=== PATIENT | male | born 1955 | race Caucasian/White ===

== ENCOUNTER → 2018-03-24 | Outpatient (CLI) | payer OTHER, MEDICARE | LOC: FIMAGING 14:54 | PROVIDERS: ATTEND Family Medicine | DX: M25.562 Pain in left knee (principal) ==

== ENCOUNTER → 2018-03-26 | Outpatient (CLI) | payer OTHER, MEDICARE | LOC: BHLMT 11:30 | PROVIDERS: ATTEND Internal Medicine Cardiovascular Disease | DX: I48.91 Unspecified atrial fibrillation (principal); I71.9 Aortic aneurysm of unspecified site, without rupture | CPT/HCPCS: 93306-PO ==

== ENCOUNTER → 2018-09-26 | Outpatient (CLI) | payer OTHER | LOC: BHLMT 11:15 | PROVIDERS: ATTEND Internal Medicine Interventional Cardiology | DX: Z01.810 Encounter for preprocedural cardiovascular examination (principal); I48.91 Unspecified atrial fibrillation | CPT/HCPCS: 93005-PO ==

== ENCOUNTER 2018-10-15 08:02 | Inpatient (IN) | payer OTHER, MEDICARE ==
--- NOTE | 2018-10-15 06:16 | PDHPUP ---
History & Physical Update H&P update statement: This history and physical update is based on an assessment of the patient which was completed after admission or registration (within 24 hours), but prior to the surgery/procedure. H&P update: H&P reviewed & patient examined, no change in patient's condition since H&P completed
--- NOTE | 2018-10-15 07:24 | PDANEPAE ---
ANE Past Medical History - Cardiovascular History Hx Hypertension: No Hx Arrhythmias: Yes Hx Coronary Artery / Peripheral Vascular Disease: No Hx CHF / Valvular Disease: No Cardiovascular History Comment: A FIB- TAKES BYSTOLIC - Pulmonary History Hx COPD: No Hx Asthma/Reactive Airway Disease: No Hx Recent Upper Respiratory Infection: No Hx Oxygen in Use at Home: No Hx Sleep Apnea: Yes Sleep Apnea Screening Result - Last Documented: Positive Pulmonary History Comment: DISHA USE CPAP - Neurologic History Hx Cerebrovascular Accident: No Hx Seizures: No Hx Dementia: No Neurologic History Comment: DDD. scoliosis - Endocrine History Hx Diabetes: No - Renal History Hx Renal Disorders: No - Liver History Hx Hepatic Disorders: No - Neurological & Psychiatric Hx Hx Neurological and Psychiatric Disorders: No - Cancer History Hx Cancer: Yes Cancer History Comment: BASAL CELL NOSE X1 - Congenital Disorder History Hx Congenital Disorders: No - GI History Hx Gastrointestinal Disorders: Yes Gastrointestinal History Comment: POLYPS. OCC INDIGESTIION - Other Health History Other Health History: OA. DDD - Chronic Pain History Chronic Pain: Yes (L HIP, JANICE KNEES, LOW BACK) - Surgical History Prior Surgeries: CARDIOVERSION. FX L HIP 31 Y AGO. HARDWARE REM SURG ANE Review of Systems Review of Systems: - Exercise capacity METS (RN): 4 METS ANE Patient History - Allergies Allergies/Adverse Reactions: No Known Allergies Allergy (Verified 10/08/18 11:31) - Home Medications Home Medications: Nebivolol HCl [Bystolic 5 mg (*)] 5 mg PO HS 09/07/14 [Last Taken 10/14/18] Meloxicam 15 mg PO DAILY 10/01/18 [Last Taken 10/08/18] - Smoking Hx Smoking Status: Never smoked - Family Anes Hx Family Hx Anesthesia Complications: NONE ANE Labs/Vital Signs - Labs - CBC Platelet Count: 268 - Vital Signs Height: 180.3 cm Weight: 93.4 kg ANE Physical Exam - Airway Neck exam: FROM Mallampati Score: Class 2 Mouth exam: normal dental/mouth exam - Pulmonary Pulmonary: clear to auscultation - Cardiovascular Cardiovascular: regular rate and rhythym - ASA Status ASA Status: II ANE Anesthesia Plan Anesthesia Plan: spinal
[~2018-10-15 08:02] MED LIST: TRANEXAMIC ACID 3,000 MG/50 ML BAG IRR ONE
[2018-10-15] MEDS ORDERED: DEXAMETHASONE 4 MG/ML VIAL IVP ONE (08:16)
[2018-10-15] MEDS ORDERED: ceFAZolin 2 GM/DEXTROSE 100 ML IV ONE (08:16)
[2018-10-15] MEDS ORDERED: FAMOTIDINE 20 MG TAB PO ONE (08:16)
[2018-10-15] MEDS ORDERED: ACETAMINOPHEN 325 MG TAB PO ONE (08:16)
[2018-10-15] MEDS ORDERED: LR 1,000 ML IV ONE (08:17)
[2018-10-15] MEDS ORDERED: PROPOFOL/EMULSION 500 MG/50 ML BOTTLE IV ONE (08:57)
[2018-10-15] MEDS ORDERED: BUPIVACAINE/DEXTROSE 7.5MG/ML 2 ML SPINAL AMP SP ONE (08:58)
[2018-10-15] MEDS ORDERED: MIDAZOLAM 2 MG/2 ML VIAL IVP ONE (09:10)
[2018-10-15] MEDS ORDERED: ONDANSETRON 4 MG/2 ML VIAL ONE (09:20)
[2018-10-15] MEDS ORDERED: PHENYLEPHRINE HCL 100 MCG/ML SYR ONE ×2 (09:27)
[2018-10-15] MEDS ORDERED: fentaNYL 100 MCG/2 ML INJ ONE (09:31)
[2018-10-15] MEDS ORDERED: TRANEXAMIC ACID 3,000 MG in NS (SYRINGE) 50 ML IRR ONE (10:00)
[2018-10-15] MEDS ORDERED: ROPIVACAINE 0.2% 80 MG, EPINEPHrine 0.2 MG, KETOROLAC TROMETHAMINE 30 MG in SYRINGE 0 ML IU ONE (10:00)
[2018-10-15] MEDS ORDERED: ALBUTEROL 3 ML DEYVIAL IH PRN (11:11)
[2018-10-15] MEDS ORDERED: MEPERIDINE 25 MG/0.5 ML AMP IVP PRN (11:11)
[2018-10-15] MEDS ORDERED: METOCLOPRAMIDE 10 MG/2 ML VIAL IVP PRN ×2 (11:11→11:30)
[2018-10-15] MEDS ORDERED: fentaNYL 100 MCG/2 ML INJ IVP PRN (11:11)
[2018-10-15] MEDS ORDERED: HYDROmorphONE/DILAUDID 2 MG/ML INJ IVP PRN (11:11)
[2018-10-15] MEDS ORDERED: LR 500 ML IV PRN (11:11)
[2018-10-15] MEDS ORDERED: PROMETHAZINE HCL 25 MG/ML INJ IVP PRN ×2 (11:11→11:30)
[2018-10-15] MEDS ORDERED: ONDANSETRON 4 MG/2 ML VIAL IVP PRN ×2 (11:11→11:30)
[2018-10-15] MEDS ORDERED: DIAZEPAM 5 MG/ML 1 ML SYR IVP PRN (11:11)
[2018-10-15] MEDS ORDERED: DEXAMETHASONE 4 MG/ML VIAL IVP PRN (11:11)
[2018-10-15] MEDS ORDERED: NALOXONE HCL 0.4 MG/ML INJ IVP PRN (11:11)
[2018-10-15] MEDS ORDERED: TEMAZEPAM 15 MG CAP PO PRN (11:30)
[2018-10-15] MEDS ORDERED: ONDANSETRON DISINTEGRATING 4 MG TAB PO PRN (11:30)
[2018-10-15] MEDS ORDERED: BISACODYL 10 MG SUPP PR PRN (11:30)
[2018-10-15] MEDS ORDERED: LACTULOSE 20 GM/30 ML UDCUP PO PRN (11:30)
[2018-10-15] MEDS ORDERED: PROMETHAZINE HCL 25 MG SUPPR PR PRN (11:30)
[2018-10-15] MEDS ORDERED: MAGNESIUM HYDROXIDE 30 ML UDCUP PO PRN (11:30)
[2018-10-15] MEDS ORDERED: CYCLOBENZAPRINE 10 MG TAB PO PRN (11:30)
[2018-10-15] MEDS ORDERED: POLYETHYLENE GLYCOL 3350 17 GM PKT PO PRN (11:30)
[2018-10-15] MEDS ORDERED: DIPHENOXYLATE/ATROPINE LOMOTIL 1 TAB PO PRN (11:30)
[2018-10-15] MEDS ORDERED: diphenhydrAMINE 25 MG CAP PO PRN (11:30)
[2018-10-15] MEDS ORDERED: LR 1,000 ML IV SCH (11:30)
--- NOTE | 2018-10-15 11:30 | POSTOPPROG ---
Post Op Note Date of Operation: 10/15/18 Surgeon: Atiya Dubois Mult Au Matic Operator: omayra dubois PA-C and Demetria Marte PA-C Anesthesiologist: dr. arciniega Anesthesia: Spinal Pre-op Diagnosis: right hip OA Post-op Diagnosis: same Indication: right hip pain Procedure: R SARAH ant approach Findings: severe hip OA Inf/Abcess present in the surg proc area at time of surgery?: No EBL: 100-500
--- NOTE | 2018-10-15 11:39 | PDMN ---
Medical Necessity Medical necessity: Pt meets IP criteria as of 10/15/2018 per and [facility] S-560 ( SARAH); Medicare IP only procedure
--- NOTE | 2018-10-15 12:34 | POSTANESTH ---
Post Anesthetic Evaluation Cardiovascular Status: Normal, Stable Respiratory Status: Normal, Stable Level of Consciousness/Mental Status: Can Participate in Eval Pain Control: Adequate, Prn Tx Ordered Nausea/Vomiting Control: Adequate, Prn Tx Ordered Complications Possibly Related to Anesthesia: None Noted
[2018-10-15] MEDS ORDERED: ceFAZolin 2 GM/DEXTROSE 100 ML IV SCH (14:00)
[2018-10-15] MEDS: ACETAMINOPHEN 325 MG TAB PO SCH ×2 (15:09→18:15)
[2018-10-15] MEDS: oxyCODONE IR 5 MG TAB PO PRN (15:50)
[2018-10-15] MEDS: ceFAZolin 2 GM/DEXTROSE 100 ML IV SCH (18:15)
[2018-10-15] MEDS ORDERED: NEBIVOLOL HCL 5 MG TAB PO SCH (21:00)
[2018-10-15] MEDS: SENNOSIDES/DOCUSATE SODIUM TAB PO SCH (21:02)
[2018-10-15] MEDS: ASPIRIN 81 MG CHEWABLE TAB PO SCH (21:02)
[2018-10-15] MEDS: FAMOTIDINE 20 MG TAB PO SCH (21:02)
[2018-10-16] MEDS: ACETAMINOPHEN 325 MG TAB PO SCH ×3 (00:14→11:41)
[2018-10-16] MEDS: oxyCODONE IR 5 MG TAB PO PRN ×2 (00:15→10:38)
[2018-10-16] MEDS: ceFAZolin 2 GM/DEXTROSE 100 ML IV SCH (02:28)
[2018-10-16 08:36] VITALS: BP 113/78
[2018-10-16] MEDS: ASPIRIN 81 MG CHEWABLE TAB PO SCH (08:37)
[2018-10-16] MEDS: FAMOTIDINE 20 MG TAB PO SCH (08:37)
[2018-10-16] MEDS: SENNOSIDES/DOCUSATE SODIUM TAB PO SCH (08:37)
--- NOTE | 2018-10-16 09:48 | ASMTLACE ---
LACE Length of stay for Answers: 2 days current admission Acuity / Level of Answers: Yes Care: Did the patient have an inpatient admission? Comorbidities - select Answers: Opioid dependence all that apply / Chronic pain Other Notes: AFib # of Emergency department Answers: 0 visits in the last 6 months Score: 10 Date Signed: 10/16/2018 09:48 AM Electronically Signed By:OMERO Muhammad
--- NOTE | 2018-10-16 13:31 | SOAPPROG ---
SOAP Progress Note Assessment/Plan: Assessment: Patient is doing well POD 1 s/p RTHA Pain management: pain is well controlled on oral pain meds. VTE ppx: recommend 81 mg aspirin morning and evening for 4 weeks, cont KETAN and SCDs Anemia: level is expected initially postop. Asymptomatic. Continue to monitor D/c planning:patient has done much better than anticipated. Patient is stable, BP stable, pain well controlled and patient is eager for discharge to home. May d/c to home today pending release from PT Pt. initially required catheterization but was able to void before discharge Plan: 10/16/18 13:29 10/16/18 13:30 Subjective: No nausea, vomiting, shortness of breath or chest pain. Pain well-controlled. Objective: Vital Signs Temp Pulse Resp BP Pulse Ox 36.3 C 61 16 113/78 95 10/16/18 08:00 10/16/18 08:00 10/16/18 08:00 10/16/18 08:00 10/16/18 08:00 Laboratory Results 10/16/18 04:15 10/15/18 10/16/18 10/17/18 05:59 05:59 05:59 Intake Total 1690 Output Total 3200 Balance -1510 RLE: incision dressing clean and dry, NVI, positive DF/PF ICD10 Worksheet Patient Problems: Problems Problem Status Onset Osteoarthritis of hip Acute
--- NOTE | 2018-10-16 18:22 | GOP ---
[f rep st] OPERATIVE REPORT DATE OF OPERATION: 10/15/2018 SURGEON: Cody Zuniga MD SLIDE FASTENER REPAIRER: Beata Zuniga, KELLY. ANESTHESIA: Spinal. PREOPERATIVE DIAGNOSIS: Right hip osteoarthritis. POSTOPERATIVE DIAGNOSIS: Right hip osteoarthritis. PROCEDURE PERFORMED: Total hip arthroplasty with x-ray. FINDINGS: ESTIMATED BLOOD LOSS: 200 cc. INDICATIONS: The patient has progressively worsening arthritis of the hip which has failed medical m anagement. The patient understands the treatment options including continued non-operative care and has selected surgical intervention. The patient has decided to undergo total hip arthroplasty via th e direct anterior approach, understanding the risks of the procedure including, but not limited to, n eurovascular injury, infection, persistent pain, component wear and loosening, deep venous thrombosis , pulmonary embolism, limb length inequality, hip instability (including dislocation), and intra-oper ative fractures. DESCRIPTION OF PROCEDURE: After proper identification of the patient including verification and sarah ing the surgical site, the patient was brought to the operating room and placed in the supine positio n. All bony prominences were well padded. Anesthesia was induced without complication and intraveno us prophylactic antibiotics were administered prior to skin incision. The operative leg was placed in the Trumpf Arch table extension and the well leg in a Yellofin leg ho lder. The patient was prepped and draped in the usual sterile fashion. The C-arm was draped for int ra-operative fluoroscopy to check acetabular position, femoral component position including leg lengt h and femoral offset. Attention was then drawn to surgical exposure of the hip. An incision was made with a #10 Bard Rankin r blade starting 3 cm lateral and 3 cm distal to the anterior superior iliac spine measuring 8-10 cm and coursing distally toward the greater trochanter. The skin and subcutaneous tissues were divided sharply down to the fascia fernando. The fascia fernando was incised in line with the skin incision exposing the underlying tensor fascia fernando muscle. The muscle was bluntly elevated from the fascia and the f irst extracapsular Cobra retractor was placed laterally at the junction of the superior femoral neck and greater trochanter. The lateral femoral circumflex vessels were identified, cauterized, and divi ded with the Aquamantys bipolar cautery. The deep investing fascia of the TFL was divided to allow p daniel mobilization of the muscle preventing damage during the retraction. The reflected head of the rectus femoris muscle was elevated off the anterior hip capsule and a medial Cobra retractor was plac ed just proximal to the lesser trochanter. The anterior capsulotomy was made sharply from the superolateral acetabulum to the saddle junction of the superior femoral neck and greater trochanter, then coursing inferomedial towards the lesser troc hanter. The retractors were then placed in the intracapsular position for femoral neck osteotomy. C orresponding to pre-operative templating, the osteotomy was made with the oscillating saw carefully p rotecting the greater trochanter and soft tissues. The femoral head was removed from the acetabulum with a corkscrew and confirmed to be severely arthritic with exposed bone, deformity and osteophytes. Similar findings were confirmed in the acetabulum. The Arch table extension was then placed in 40 degrees external rotation. Attention was then drawn to the acetabular preparation. After placement of the anterior and posterio r Cobra retractors outside the labrum and intracapsular, the circumferential labrum was removed sharp ly. The foveal contents were then removed and hemostasis obtained with cautery. The first reamer selected was sized using the removed femoral head. Reaming began with medialization and then commenced in 2 mm increments at 45 degrees of abduction and 15 degrees of anteversion using fluoroscopic navigation. Reaming ceased 1 mm less than the definitive acetabular component and kanchan esponded to the pre-operative templating. The final acetabular component was inserted using fluorosc opy to achieve proper orientation yielding excellent purchase and stability in the acetabulum. The f inal acetabular liner was then placed and its seating confirmed. Attention was then turned to the femur. The Arch table extension was placed in extension and adducti on, delivering the osteotomized femoral neck into the wound. A 2-pronged femoral elevator was placed at the calcar and another at the tip of the greater trochanter. The posterolateral capsule was rele ased with cautery allowing mobilization of the femur lateral and anterior for preparation. The exter nal rotators were visualized and preserved. A curette and rongeur were used to open the starting poi nt for broaching. Serial broaching started with the #0 broach and ended with the broach that exhibit ed excellent fit in the proximal femur. A change in pitch during mallet strikes was accompanied by t he inability to advance the broach any further. The trial reduction was performed and fluoroscopic n avigation was utilized to check limb length. Adjustments were made to equalize limb length according ly. After the final trials were accepted they were removed and the wound was copiously lavaged. The femo ral component was seated to the same depth as the final broach and the femoral head was impacted onto the clean trunnion. The hip was then reduced for the final time and once more fluoroscopy was used to check that limb length equality was achieved. The wound was irrigated and closed in layers, the fascia fernando with 2-0 Quill, the subcutaneous tissue with 2-0 Quill, and the skin with Dermabond. Sterile dressings were applied. Final sharps and spon ge counts were accurate. The patient was then transferred to a hospital bed and brought to the [facility] room in stable condition. IMPLANT: Accolade II, size 5 at 127. Acetabular component is a Trident II, 58 mm. Liner is a Tride nt X3, 36 mm. Head is a Biolox delta 36 mm, +2.5. /[id number]/MODL
== END 2018-10-16 12:13 | disposition home or self-care (01) | DRG 470 ==
LOC: F3N 08:02
PROVIDERS: ADMIT Orthopaedic Surgery; ATTEND Orthopaedic Surgery
PROC: 0SR904A Replacement of Right Hip Joint with Ceramic on Polyethylene Synthetic Substitute, Uncemented, Open Approach (ICD-10-PCS; principal; 2018-10-15 10:00)
DX: M16.11 Unilateral primary osteoarthritis, right hip (principal); G47.33 Obstructive sleep apnea (adult) (pediatric); I48.0 Paroxysmal atrial fibrillation; I37.1 Nonrheumatic pulmonary valve insufficiency; I07.1 Rheumatic tricuspid insufficiency; Z85.820 Personal history of malignant melanoma of skin
CPT/HCPCS: 97110-GP; 97116-GP; 97161-GP; J0171; J0690; J1100; J1885; J2250; J2370; J2405; J2704; J2795; J3010